=== PATIENT | female | born 1985 | race American Indian/Alaskan Native ===

== ENCOUNTER 2017-10-21 05:45 | Day surgery (SDC) | payer OTHER ==
[~2017-10-21 05:45] MED LIST: ANCEF/STERILE WATER 2 GM/20 ML 2 GM/20 ML SYRINGE IV SCH
[2017-10-21] MEDS ORDERED: ANTIBIOTIC OINT TP ONE (06:42)
[2017-10-21] MEDS ORDERED: MARCAINE 0.25% INFILTRATI ONE ×2 (06:42→07:40)
[2017-10-21] MEDS ORDERED: XYLOCAINE 1% 20 mL ONE (06:42)
[2017-10-21] MEDS ORDERED: VERSED IV NR (07:02)
[2017-10-21] MEDS ORDERED: NACL 0.9% 1000 ML 1,000 ML IV SCH (07:03)
[2017-10-21] MEDS ORDERED: NACL BACTERIOSTATIC INFILTRATI ONE (07:06)
--- NOTE | 2017-10-21 07:14 | Anesthesia Consultation ---
Anesthesia Consult and Med Hx - Airway Anesthetic Teeth Evaluation: Poor, Chipped ROM Head & Neck: Adequate Mental/Hyoid Distance: Adequate Mallampati Class: Class II Intubation Access Assessment: Good - Pulmonary Exam CTA: Yes - Cardiac Exam Cardiac Exam: RRR - Pre-Operative Health Status ASA Pre-Surgery Classification: ASA3 Proposed Anesthetic Plan: General - Pulmonary Hx Smoking: Yes (1/2 PPD X 15 YRS) Hx Sleep Apnea: No (SABRINA PRE SCREEN LOW RISK.) - Cardiovascular System Hx Hypertension: No - Gastrointestinal Hx Ulcer: Yes - Hematic Hx Anemia: (NOT RECENT) - Other Systems Hx Cancer: No
[2017-10-21] MEDS ORDERED: ZOFRAN IV PRN (07:15)
[2017-10-21] MEDS ORDERED: DIPRIVAN 10 MG/ML IV ONE ×4 (07:17→08:02)
[2017-10-21] MEDS ORDERED: XYLOCAINE MPF 2% ONE ×2 (07:19→08:07)
[2017-10-21] MEDS ORDERED: DILAUDID ONE ×2 (07:20→08:02)
--- NOTE | 2017-10-21 07:21 | Anesthesia Day of Surgery ---
Anesthesia Day of Surgery - Day of Surgery Patient Examined: Yes Patient H&P Reviewed: Yes Patient is NPO: Yes
[2017-10-21] MEDS ORDERED: XYLOCAINE 1% 20 mL INFILTRATI ONE (07:40)
[2017-10-21] MEDS ORDERED: DECADRON IM ONE (08:10)
[2017-10-21] MEDS ORDERED: DECADRON ONE (08:14)
[2017-10-21] MEDS: DILAUDID IV PRN ×2 (09:12→09:20)
--- NOTE | 2017-10-21 09:19 | Post Anesthesia Evaluation ---
- Post Anesthesia Evaluation Patient Participated: Yes Airway Patent: Yes Stable Respiratory Function: Yes Nausea/Vomiting: No Temp > 96.8F: Yes Pain Manageable: Yes Adequeate Hydration: Yes Anesthesia Complications: No Block Receding Appropriately: Not Applicable
[2017-10-21 10:11] VITALS: BP 108/61
--- NOTE | 2017-11-03 20:46 | Operative Report ---
PREOPERATIVE DIAGNOSIS: Painful soft tissue mass, right foot, ankle. POSTOPERATIVE DIAGNOSIS: Painful soft tissue mass, right foot, ankle. SURGICAL PROCEDURES: Removal of soft tissue mass, unknown, right foot, ankle. TOURNIQUET: Pneumatic ankle tourniquet. ESTIMATED BLOOD LOSS: Less than 10 mL. DESCRIPTION OF PROCEDURE: The patient was brought to the operating room and placed on the operating table in supine position. Following intravenous sedation, the patient was given 2 grams of Ancef prophylactically. At this time, a well-padded pneumatic ankle tourniquet was placed 2-3 cm proximal to both the medial and lateral malleolar, and at this time, attention was directed to the right lateral ankle, in which 20 mL of 1:1 mix of 1% lidocaine plain plus 0.25% Marcaine plain was infiltrated to the affected site. At this time, foot was then scrubbed, prepped and draped in the usual aseptic manner. Procedure was just begun after exsanguinating the foot with an Esmarch to 250 mmHg. The tourniquet was therefore deflated. At this time, attention was directed to a soft tissue mass that was greater than 3 cm in diameter, in which an oblique incision was made approximately 6 cm in nature. Thus, the care being taken to protect all vital neurovascular structures and all vessels then cauterized as needed. At this time, with careful dissection, the soft tissue mass was identified and was noted to have gelatin type tissues noted. At this time, with careful dissection, the mass was thus removed and passed from the operative field to be sent to the laboratory for further diagnostic evaluation, but to be noted, the root of the soft tissue mass was thus cauterized copiously and deep cultures were performed. There to be noted, all infected tissue was noted and removed. At this time, area was flushed copiously with normal sterile saline and reapproximated with 4-0 Vicryl followed by a subcuticular closure with 4-0 Vicryl followed by 4-0 Prolene with simple interrupted stitches and horizontal stitches. 1 mL of dexamethasone phosphate was infiltrated into the affected site. The area was dressed with bacitracin ointment, Adaptic a sterile compressive dressing and the pneumatic ankle tourniquet was deflated with a prompt hyperemic response to all digits of the affected foot. The patient tolerated the procedure and anesthesia well, will be transferred to recovery and discharged home with immobilization and postoperative instructions. JOB# [id number] CHAD/JESSE
== END 2017-10-21 10:25 | disposition home or self-care (01) ==
LOC: OR 05:45
PROVIDERS: ATTEND Podiatrist Foot & Ankle Surgery
DX: M71.371 Other bursal cyst, right ankle and foot (principal); F17.210 Nicotine dependence, cigarettes, uncomplicated; Z88.8 Allergy status to other drugs, medicaments and biological substances
CPT/HCPCS: 27632; 81025; 87075; 87102; 87116; 87220; 88305; J0690; J1100; J1170; J2250; J2405; J2704; J7030; 88307